=== PATIENT | male | born 2000 | race Hispanic/Latino ===

== ENCOUNTER 2024-11-10 16:06 | Emergency (ER) | payer SELFPAY ==
[2024-11-10 16:09] VITALS: BP 179/98
--- NOTE | 2024-11-10 16:55 | ED.GENMED ---
History of Present Illness
General
Chief Complaint: Male Genito-Urinary Symptoms
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
Time Seen by Provider: 11/10/24 16:33
History of Present Illness
History of Present Illness:
Swedish language line [id number] (Jovan) used for interpretation
24-year-old male with no significant past medical history (confirmed that patient did not in fact have a transplant performed) presenting to the emergency department for evaluation of a lesion at the tip of his penis with mild discomfort, history of
herpes which he states was due to a previous girlfriend who he had previously been sexually active with but she did not notify him a of herpes and for. Patient reports that about 1 to 2 years ago when he lived in [place] he was treated with an
unknown pill and cream and reports resolution of the symptoms in totality has not had any problems since. He reports that he is not currently sexually active. Has no urinary symptoms including dysuria, frequency/urgency, testicular pain,
difficulty urinating or any other concerns.
Past History
Past History
ED Past Medical History: None
ED Past Surgical History: None
Social History
Tobacco: Non-smoker
Alcohol: Occasional
Drug: None
Personal: Single
Living: with family
Review of Systems
Review of Systems
All Other Systems: ROS reviewed and negative except as documented in HPI and ROS
Phy Exam
Physical Exam
Physical Exam:
GENERAL: Alert , in no apparent distress
EYE: conjunctiva clear
Head: Normocephalic atraumatic
NECK: Supple,
ENT: mmm.
LUNGS: no acute respiratory distress
GENITOURINARY: Uncircumcised, foreskin easily reducible and retractable, 2 small punctate erythematous vesicles at the tip of the urethra, no urethral discharge, no testicular tenderness or edema
NEUROLOGICAL: Alert and oriented
SKIN: Warm and dry, skin intact.
MUSCULOSKELETAL: well perfused.
PSYCH: Normal and appropriate interaction.
Scores
Heart Failure Risk
Heart Failure Risk Score: Not Applicable
Heart Score for Chest Pain Patients
STEMI patient?: Not applicable
Withdrawal Assessment of Alcohol
Withdrawal Assessment Completed?: Not applicable
Course
Orders/Labs/Results
Orders:
Orders
11/10/24 17:09
Urinalysis Reflex To Culture Urgent
Date Specimen was Collected: 11/10/24
Time Specimen was Collected: 16:38
Urine Microscopic Reflex Cult Urgent
Chlamydia/GC by PCR Urgent
VALERIE Source: Urine
Specimen Description:
Source:: URINE
Date Specimen was Collected: 11/10/24
Time Specimen was Collected: 16:38
Urine Culture Urgent
VALERIE Source: U
Specimen Description:
Date Specimen was Collected: 11/10/24
Time Specimen was Collected: 16:38
Abnormal Lab Results
11/10/24
17:09
Urine Bacteria (Reflex) Moderate A
(Negative)
Urine Albumin (Reflex) 1+ A
(Neg - Trace)
Vital Signs
Initial and Last Documented VS:
Initial Vital Signs
Temp Pulse Resp BP Pulse Ox
98.2 F 115 18 179/98 100
11/10/24 16:09 11/10/24 16:09 11/10/24 16:09 11/10/24 16:09 11/10/24 16:09
Last Documented Vital Signs
Temp Pulse Resp BP Pulse Ox
98.2 F 115 18 179/98 100
11/10/24 16:09 11/10/24 16:09 11/10/24 16:09 11/10/24 16:09 11/10/24 16:56
MDM/Problems Addressed
Differential Diagnosis Includes:
Herpes virus infection
Gonorrhea
Chlamydia
Urethritis
Balanitis
Balanoposthesis
No symptoms to suggest phimosis/paraphimosis
MDM/Problems Addressed:
24-year-old male presenting the ER for evaluation of 2 small lesions that he noted at the tip of the penis, history of suspected herpes infection about 2 years ago requiring oral medications and a cream however patient does not remember what these
medicines were. Based off exam patient does appear to have a mild active herpes outbreak. Will treat with oral medications and a cream for possible balanitis. Will treat with oral Valtrex and topical clotrimazole.
*Pulse Oximetry
SaO2: 100
Oxygen Mode of Delivery: Room air
Patient hypoxic: no
*Critical Care Note
Total Time (30-74mins, 75-104mins- exclusive of procedures): Not Applicable
ED Attending Note
-
Portions of this chart may have been created with voice recognition software.� Occasional wrong word or��sound alike� substitutions may have occurred due to the inherent limitations of voice recognition software.
Discharge Plan
Departure
Patient Disposition: Home (Routine Discharge)
Date of Disposition: 11/10/24
Time of Disposition: 17:08
Patient with high blood pressure during this ER visit?: Yes
Discharge Problem:
Herpes
Instructions: Genital herpes
Prescriptions:
New
valacyclovir [Valtrex] 1 gram tablet
1,000 mg PO DAILY 5 Days Qty: 5 0RF
clotrimazole 1 % cream
1 applic topical BID 14 Days Qty: 30 0RF
Referrals:
[facility] [Outside]
NONE,* [Family Provider, Internal Medicine]
Interventions
Interventions:
*Risk Screen - Suicide Last Done: 11/10/24 16:09
*General Assessment Last Done: 11/10/24 17:14
*Neglect/Abuse Screening Last Done: 11/10/24 16:09
*ED- Fall Risk Assessment Last Done: 11/10/24 17:14
*ED COVID-19 Vaccine History Last Done: 11/10/24 17:14
*Nursing Disposition Last Done: 11/10/24 17:14
ED-Male Genitourinary Assessment Last Done: 11/10/24 17:13
Discharge Date and Time
Discharge Date/Time: 11/10/24 17:15
Print Language: MOLDOVAN
[2024-11-10 17:28] LABS: Urine Character Clear (Clear)
[2024-11-10 17:36] LABS: Urine Red Blood Cell 0-2 /HPF (0-2); Urine Squamous Cell 0-2 /LPF (Few); Urine White Cell 0-2 /HPF (0-5)
== END 2024-11-10 17:15 | disposition home or self-care (01) ==
LOC: EMR 16:06
PROVIDERS: Physician Assistant Medical; EMERGENCY PHYSICIAN Emergency Medicine
DX: B00.9 Herpesviral infection, unspecified (principal)
CPT/HCPCS: 99282; 81003; 81015; 87086; 87491; 87591

== ENCOUNTER 2024-12-15 14:59 | Emergency (ER) | payer SELFPAY ==
[2024-12-15 15:09] VITALS: BP 131/86
[2024-12-15 15:33] LABS: Hematocrit 48.4 % (39.0-52.0); Hemoglobin 16.9 g/dL (13.0-18.0); Mean Corp Hgb Conc. 34.9 g/dL (33.0-37.0); Mean Corpuscular Volume 91.7 fL (80.0-94.0); Nucleated Red Blood Cells % 0 % (-); Platelet Count 309 10^3/uL (130-400); Red Cell Dist. Width 11.8 % (11.5-14.5)
[2024-12-15 15:48] LABS: ALT (SGPT) 28 U/L (0-50); AST (SGOT) 29 U/L (17-59); Albumin 5.0 g/dl (3.5-5.0); Blood Urea Nitrogen 17 mg/dl (9-20); Calcium 9.9 mg/dl (8.4-10.2); Carbon Dioxide 26 mmol/L (22-30); Chloride 102 mmol/L (98-107); Glucose 94 mg/dl (70-99); Lipase 95 U/L (23-300); Potassium 4.2 mmol/L (3.5-5.1); Sodium 138 mmol/L (135-145); Total Protein 8.2 g/dl (6.3-8.2); eGFR > 60.00
[2024-12-15 16:10] LABS: Alkaline Phosphatase 61 U/L (38-126)
[2024-12-15 17:48] VITALS: BP 144/84
--- NOTE | 2024-12-15 18:30 | ED.GENMED ---
History of Present Illness
<Tom Merino PA-C - Last Filed: 12/15/24 18:38>
General
Chief Complaint: Abdominal Pain
Source: patient
Exam Limitations: none
Time Seen by Provider: 12/15/24 18:20
History of Present Illness
History of Present Illness:
24-year-old male presents with 2 days worth of persistent right lower abdominal pain. There is associated diarrhea. No vomiting or fever. No urinary symptoms. No blood in the stool. He is healthy otherwise. He tried ibuprofen without
significant relief. No known sick contacts. No injury. No other
Past History
<Tom Merino PA-C - Last Filed: 12/15/24 18:38>
Past History
ED Past Medical History: None
ED Past Surgical History: None
Social History
Tobacco: Non-smoker
Alcohol: Occasional
Drug: None
Personal: Single
Living: with family
Phy Exam
<BENNETT Estrada Last Filed: 12/15/24 18:38>
Physical Exam
Physical Exam:
General: Well-appearing male no acute respiratory distress
HEENT normocephalic atraumatic
Heart: Regular rate and rhythm
Lungs: Clear no wheeze
Abdomen is soft tender to the right lower quadrant no guarding no rebound nondistended
Extremities: No cyanosis
Course
<Tom Merino PA-C - Last Filed: 12/15/24 18:38>
Orders/Labs/Results
Orders:
Orders
12/15/24 15:22
Complete Blood Count/With Diff Urgent
Comprehensive Metabolic Panel Urgent
Lipase Urgent
12/15/24 18:27
CT Abd/pelvis W Iv Cont Urgent
Comment:
Reason For Exam: rlq pain
0.9% Sodium Chloride 1000 ml [Nss] 1,000 ml IV BOLUS
Ketorolac [Toradol] 15 mg IV NOW STA
Abnormal Lab Results
12/15/24
15:22
MCH 32.0 H pg
(27.0-31.0)
Abs Immat Gran (auto) 0.1 H 10^3/uL
(0-0.05)
Immature Gran % 0.9 H %
(0-0.5)
12/15/24 15:22
12/15/24 15:22
Vital Signs
Initial and Last Documented VS:
Initial Vital Signs
Temp Pulse Resp BP Pulse Ox
98.6 F 79 16 131/86 100
12/15/24 15:09 12/15/24 15:09 12/15/24 15:09 12/15/24 15:09 12/15/24 15:09
Last Documented Vital Signs
Temp Pulse Resp BP Pulse Ox
98.4 F 85 16 126/74 98
12/15/24 17:48 12/15/24 22:45 12/15/24 22:45 12/15/24 22:45 12/15/24 22:45
<Lara Gomez PA-C - Last Filed: 12/15/24 22:30>
Orders/Labs/Results
Orders:
Orders
12/15/24 15:22
Complete Blood Count/With Diff Urgent
Comprehensive Metabolic Panel Urgent
Lipase Urgent
12/15/24 18:27
CT Abd/pelvis W Iv Cont Urgent
Comment:
Reason For Exam: rlq pain
0.9% Sodium Chloride 1000 ml [Nss] 1,000 ml IV BOLUS
Ketorolac [Toradol] 15 mg IV NOW STA
Abnormal Lab Results
12/15/24
15:22
MCH 32.0 H pg
(27.0-31.0)
Abs Immat Gran (auto) 0.1 H 10^3/uL
(0-0.05)
Immature Gran % 0.9 H %
(0-0.5)
12/15/24 15:22
12/15/24 15:22
Vital Signs
Initial and Last Documented VS:
Initial Vital Signs
Temp Pulse Resp BP Pulse Ox
98.6 F 79 16 131/86 100
12/15/24 15:09 12/15/24 15:09 12/15/24 15:09 12/15/24 15:09 12/15/24 15:09
Last Documented Vital Signs
Temp Pulse Resp BP Pulse Ox
98.4 F 85 16 126/74 98
12/15/24 17:48 12/15/24 22:45 12/15/24 22:45 12/15/24 22:45 12/15/24 22:45
<Too Vaqsues, DO - Last Filed: 12/16/24 11:30>
Orders/Labs/Results
Orders:
Orders
12/15/24 15:22
Complete Blood Count/With Diff Urgent
Comprehensive Metabolic Panel Urgent
Lipase Urgent
12/15/24 18:27
CT Abd/pelvis W Iv Cont Urgent
Comment:
Reason For Exam: rlq pain
0.9% Sodium Chloride 1000 ml [Nss] 1,000 ml IV BOLUS
Ketorolac [Toradol] 15 mg IV NOW STA
Abnormal Lab Results
12/15/24
15:22
MCH 32.0 H pg
(27.0-31.0)
Abs Immat Gran (auto) 0.1 H 10^3/uL
(0-0.05)
Immature Gran % 0.9 H %
(0-0.5)
12/15/24 15:22
12/15/24 15:22
Vital Signs
Initial and Last Documented VS:
Initial Vital Signs
Temp Pulse Resp BP Pulse Ox
98.6 F 79 16 131/86 100
12/15/24 15:09 12/15/24 15:09 12/15/24 15:09 12/15/24 15:09 12/15/24 15:09
Last Documented Vital Signs
Temp Pulse Resp BP Pulse Ox
98.4 F 85 16 126/74 98
12/15/24 17:48 12/15/24 22:45 12/15/24 22:45 12/15/24 22:45 12/15/24 22:45
<Tom Merino PA-C - Last Filed: 12/15/24 18:38>
*Pulse Oximetry
SaO2: 100
Oxygen Mode of Delivery: Room air
<Lara Gomez PA-C - Last Filed: 12/15/24 22:30>
*Pulse Oximetry
Patient hypoxic: no
*Critical Care Note
Total Time (30-74mins, 75-104mins- exclusive of procedures): Not Applicable
<Too Vasques DO - Last Filed: 12/16/24 11:30>
*Radiology
Radiology exam reviewed: radiology read reviewed
<Tom Merino PA-C - Last Filed: 12/15/24 18:38>
Update Note
Update Note:
Right lower abdominal pain. Consider viral illness versus adenitis versus appendicitis versus constipation
Check labs. Patient slightly tachycardic. Fluids ordered Toradol ordered. CT PE
<Lara Gomez PA-C - Last Filed: 12/15/24 22:30>
Update Note
Update Note:
Right lower abdominal pain. Consider viral illness versus adenitis versus appendicitis versus constipation
Check labs. Patient slightly tachycardic. Fluids ordered Toradol ordered.
10:26PM- CT demonstrates evidence of enteritis without evidence of appendicitis. Patient was made aware utilizing the hot saw helper. Patient is no longer tachycardic after receiving ketorolac and IV fluids. At this time patient is safer
discharge home with instructions on supportive care measures and return precautions. Patient expressed understanding the plan and agreed.
ED Attending Note
<Tom Merino PA-C - Last Filed: 12/15/24 18:38>
-
Portions of this chart may have been created with voice recognition software.� Occasional wrong word or��sound alike� substitutions may have occurred due to the inherent limitations of voice recognition software.
Discharge Plan
Departure
Patient Disposition: Home (Routine Discharge)
Date of Disposition: 12/15/24
Time of Disposition: 22:26
Patient with high blood pressure during this ER visit?: Yes
Condition: Good
Covid-19: Not Applicable
Discharge Problem:
Enteritis
Instructions: Viral gastroenteritis in adults
Prescriptions:
No Action
ibuprofen 200 mg Tablet
800 mg PO Q6H
Referrals:
NONE,* [Family Provider, Internal Medicine]
Stand Alone Forms: Return to Work
Activity Restrictions/Additional Instructions:
You were seen in the emergency department for evaluation of abdominal pain associated with diarrhea. While you were in the emergency department your blood work did not show any dangerous abnormalities. Your CT scan shows evidence of inflammation
of your small intestine but no evidence of appendicitis. This could be due to a virus. Please try to get plenty of rest and drink plenty of liquids. You may take Tylenol if needed for pain. Please return to the emergency department if you
develop severe pain, persistent vomiting, fever greater than 100.4 �F, or for any other worsening or concerning symptoms.

Lo atendieron en urgencias para evaluarle un dolor abdominal asociado con diarrea. Bridger hackett estancia en urgencias, adela an�lisis de carson no mostraron ninguna anomal�a peligrosa. Hackett tomograf�a computarizada muestra evidencia de inflamaci�n del
intestino albarran, jeet no de apendicitis. [place] podr�a deberse a un virus. Procure descansar robby y beber muchos l�quidos. Puede harinder Tylenol si lo necesita para el dolor. Regrese a urgencias si presenta dolor intenso, v�mitos persistentes, fiebre
superior a 38 �C o cualquier otro s�ntoma preocupante o que empeore.
Interventions
Interventions:
*Risk Screen - Suicide Last Done: 12/15/24 15:09
*General Assessment Last Done: 12/15/24 19:39
*Neglect/Abuse Screening Last Done: 12/15/24 15:09
*ED- Fall Risk Assessment Last Done: 12/15/24 17:48
*ED COVID-19 Vaccine History Last Done: 12/15/24 19:39
*Nursing Disposition Last Done: 12/15/24 22:50
QR-Dwtyss-Xhwjamsrpp Assessment Last Done: 12/15/24 17:48
Discharge Date and Time
Discharge Date/Time: 12/15/24 22:51
Print Language: HEBREW
[2024-12-15] MEDS: TORADOL 15 MG IV (19:19)
[2024-12-15] MEDS: NSS 1000 IV (19:19)
[2024-12-15 21:24] VITALS: BP 142/84
[2024-12-15 21:55] VITALS: BP 138/83
[2024-12-15 22:45] VITALS: BP 126/74
== END 2024-12-15 22:51 | disposition home or self-care (01) ==
LOC: EMR 14:59
PROVIDERS: EMERGENCY PHYSICIAN Emergency Medicine
DX: R10.31 Right lower quadrant pain (principal); K52.9 Noninfective gastroenteritis and colitis, unspecified
CPT/HCPCS: 99284; 96374; 74177; 80053; 83690; 85025; Q9967